=== PATIENT | male | born 1975 | race Caucasian/White ===

== ENCOUNTER 2020-10-14 09:43 | Emergency (ER) | payer OTHER ==
[2020-10-14 09:54] VITALS: BP 112/72; PULSE 68; TEMP 97.9; BMI 23.7
[2020-10-14] MEDS ORDERED: CLINDAMYCIN 600MG PREMIX IVPB 600 MG/50 ML BAG IVPB ONE (10:13)
[2020-10-14] MEDS ORDERED: CLINDAMYCIN PHOSPHATE 600 MG/4 ML VIAL ONE (10:27)
[2020-10-14] MEDS ORDERED: LIDOCAINE HCL 2% (50ML VIAL) SQ ONE (10:32)
[2020-10-14] MEDS ORDERED: LIDOCAINE HCL 2% (20ML MULTI-DOSE VIAL) ONE (10:42)
[2020-10-14 10:48] LABS: EOS % 1.3 % (0-4.5); HEMATOCRIT 40.5 % (35.4-49); LYMPH % 15.4 % (8-40); MCH 28.5 pg (25.7-33.7); MCHC 32.1 g/dl (32.0-35.9); MEAN CELL VOLUME 88.7 fl (80-96); MEAN PLT VOLUME 9.2 fl (7.5-11.1); MONO % 13.7 % (3.8-10.2); NEUT % 68.6 % (42.8-82.8); PLATELET COUNT 188 K/MM3 (134-434); RBC 4.57 M/mm3 (4.00-5.60); RDW 12.8 % (11.9-15.9); WHITE BLOOD COUNT 4.1 K/mm3 (4.0-10.8)
== END 2020-10-14 11:44 | disposition home or self-care (01) ==
LOC: FER 09:43
PROC: 0H9GXZZ Drainage of Left Hand Skin, External Approach (ICD-10-PCS; principal; 2020-10-14)
PROC: 3E03329 Introduction of Other Anti-infective into Peripheral Vein, Percutaneous Approach (ICD-10-PCS; 2020-10-14)
DX: L03.012 Cellulitis of left finger (principal)
CPT/HCPCS: 36415; 73130-TC-LT-FY; 76882-TC-LT; 85025; 99284-25

== ENCOUNTER 2020-10-16 19:44 | Emergency (ER) | payer OTHER ==
[2020-10-16 20:05] VITALS: BP 108/64; PULSE 62; TEMP 97.7; BMI 20.9
[2020-10-16] MEDS ORDERED: PIPERACILLIN/TAZOB 3.375 GM 3.375 GM in DEXTROSE 5%-WATER - 50 ML IVPB ONE (20:11)
[2020-10-16] MEDS ORDERED: PIPERACILLIN/TAZOBACTAM 3.375 GM VIAL IVPB ONE (20:17)
== END 2020-10-16 21:05 | disposition home or self-care (01) ==
LOC: FER 19:44
PROC: 3E033GC Introduction of Other Therapeutic Substance into Peripheral Vein, Percutaneous Approach (ICD-10-PCS; principal; 2020-10-16)
DX: L98.8 Other specified disorders of the skin and subcutaneous tissue (principal); Z48.01 Encounter for change or removal of surgical wound dressing
CPT/HCPCS: 99284-25

== ENCOUNTER 2020-10-22 13:30 | Emergency (ER) | payer OTHER ==
[2020-10-22 13:43] VITALS: TEMP 99.2; BMI 20.9
[2020-10-22] MEDS ORDERED: SODIUM CHLORIDE 1,000 ML IV ONE (14:54)
[2020-10-22] MEDS ORDERED: KETOROLAC TROMETHAMINE 15 MG/ML VIAL IVPUSH ONE (14:54)
[2020-10-22] MEDS ORDERED: METOCLOPRAMIDE HCL INJECTION 10 MG/2 ML VIAL IVPUSH ONE (14:54)
[2020-10-22] MEDS ORDERED: METOCLOPRAMIDE HCL INJECTION 10 MG/2 ML VIAL ONE (15:06)
[2020-10-22] MEDS ORDERED: KETOROLAC TROMETHAMINE 15 MG/ML VIAL ONE (15:06)
[2020-10-22 16:16] LABS: HEMOGLOBIN 13.4 GM/dl (11.7-16.9); MEAN PLT VOLUME 9.1 fl (7.5-11.1); MONO % 11.4 % (3.8-10.2); WHITE BLOOD COUNT 7.6 K/mm3 (4.0-10.8)
[2020-10-22 16:19] LABS: BASO % 0.9 % (0-2.0); EOS % 2.7 % (0-4.5); HEMATOCRIT 40.4 % (35.4-49); LYMPH % 15.6 % (8-40); MCHC 33.2 g/dl (32.0-35.9); MEAN CELL VOLUME 87.3 fl (80-96); NEUT % 69.4 % (42.8-82.8); PLATELET COUNT 256 K/MM3 (134-434); RBC 4.62 M/mm3 (4.00-5.60); RDW 12.6 % (11.9-15.9)
[2020-10-22 17:04] LABS: ALBUMIN 4.1 g/dl (3.4-5.0); CALCIUM 9.1 mg/dl (8.5-10); CREATININE 0.8 mg/dl (0.55-1.3); POTASSIUM 4.1 mmol/L (3.5-5.1); TOT PROT 6.9 g/dl (6.4-8.2)
[2020-10-22 18:37] VITALS: BP 105/69; PULSE 74
== END 2020-10-22 18:34 | disposition home or self-care (01) ==
LOC: FER 13:30
PROC: 3E0333Z Introduction of Anti-inflammatory into Peripheral Vein, Percutaneous Approach (ICD-10-PCS; principal; 2020-10-22)
PROC: 3E033GC Introduction of Other Therapeutic Substance into Peripheral Vein, Percutaneous Approach (ICD-10-PCS; 2020-10-22)
PROC: 3E0337Z Introduction of Electrolytic and Water Balance Substance into Peripheral Vein, Percutaneous Approach (ICD-10-PCS; 2020-10-22)
DX: M79.10 Myalgia, unspecified site (principal)
CPT/HCPCS: 36415; 80053; 85025; 86618; 87040; 87804; 99284-25

== ENCOUNTER 2021-08-16 05:38 | Emergency (ER) | payer OTHER ==
[2021-08-16 05:54] VITALS: BP 93/51; PULSE 66; TEMP 98.8; BMI 21.0
== END 2021-08-16 07:09 | disposition home or self-care (01) ==
LOC: FER 05:38
DX: S92.424A Nondisplaced fracture of distal phalanx of right great toe, initial encounter for closed fracture (principal); W22.09XA Striking against other stationary object, initial encounter
CPT/HCPCS: 73660-TC-FY; 99283-25